=== PATIENT | male | born 1960 | race Caucasian/White ===

== ENCOUNTER 2023-05-28 21:16 | Emergency (ER) | payer OTHER, SELFPAY ==
[2023-05-28 21:35] VITALS: BP 166/89; PULSE 82; RESP 18; TEMP 37.1; O2SAT 97; BMI 36.6
--- NOTE | 2023-05-28 23:05 | ED.UPPEXIN1 ---
HPI - Extremity Injury (Upper) General Chief Complaint: Extremity Injury, Upper Stated Complaint: UPPER EXTREMITY INJURY Time Seen by Provider: 05/28/23 22:54 Source: patient Mode of arrival: walk-in Limitations: no limitations History of Present Illness HPI narrative: working on wood floor and got a splinter in his left pinky finger about 6 hours ago. 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 [facility] doctor was unsuccessful at removing it and directed him here. no other injury or complaint Related Data Home Medications Medication Instructions Recorded Confirmed amlodipine 5 mg tablet 5 mg PO DAILY 05/28/23 05/28/23 losartan 25 mg tablet (Cozaar) 25 mg PO DAILY 05/28/23 05/28/23 Allergies Allergy/AdvReac Type Severity Reaction Status Date / Time gentamicin Allergy Verified 05/28/23 21:44 hydromorphone [From Dilaudid] Allergy Verified 05/28/23 21:44 lisinopril Allergy Verified 05/28/23 21:44 Review of Systems ROS Status of ROS 10 or more systems reviewed and unremarkable except as noted in history and below [facility] Social History Smoking status: Never smoker Exam Constitutional Vital Signs, click to edit/add: Last Vital Signs Temp 98.7 F 05/28/23 21:35 Pulse 82 05/28/23 21:35 Resp 18 05/28/23 21:35 BP 166/89 H 05/28/23 21:35 Pulse Ox 97 05/28/23 21:35 O2 Del Method Room Air 05/28/23 21:35 Common normals: no apparent distress, average body habitus, oriented x3, healthy appearing, alert and well nourished [facility] Common normals: normocephalic and head/scalp atraumatic Eye Common normals: EOMs intact bilaterally and conjunctivae normal Respiratory Common normals: normal respiratory effort and no use of accessory muscles Extremity Other: small puncture volar left pinky near DIP joint. site is tender. not able to palpate any FB Neuro Common normals: oriented x3, CN's II-XII intact bilaterally, moves all extremities, no focal motor deficits and no sensory deficits noted Psych Appearance: grossly normal Course Vital Signs Vital signs: Vital Signs Temperature 98.7 F 05/28/23 21:35 Pulse Rate 82 05/28/23 21:35 Respiratory Rate 18 05/28/23 21:35 Blood Pressure 166/89 H 05/28/23 21:35 Pulse Oximetry 97 05/28/23 21:35 Oxygen Delivery Method Room Air 05/28/23 21:35 Temperature 98.7 F 05/28/23 21:35 Pulse Rate 82 05/28/23 21:35 Respiratory Rate 18 05/28/23 21:35 Blood Pressure 166/89 H 05/28/23 21:35 Pulse Oximetry 97 05/28/23 21:35 Oxygen Delivery Method Room Air 05/28/23 21:35 MDM - Extremity Injury (Upper) MDM Narrative Medical decision making narrative: presents with FB left pinky. able to remove as above. No complications. Patient given tetanus and augmentin and discharged home Discharge Plan Discharge Chief Complaint: Extremity Injury, Upper Clinical Impression: Foreign body in skin of finger of left hand Patient Disposition: Home, Self-Care Prescriptions / Home Meds: No Action losartan [Cozaar] 25 mg tablet 25 mg PO DAILY amlodipine 5 mg tablet 5 mg PO DAILY Instructions: Puncture Wound (ED) Additional Instructions: have stitch removed 10 days Stand Alone Forms: Portal Instructions Referrals: Physician,Non-Staff, MD [Primary Care Provider] - 1 week Procedures ED Procedure Instructions Procedures Procedures: splinter left volar pinky at DIP joint. 1% lido without epi as a local. 4mm incision made to locate wooden FB. Able to slowly release and express the FB enough to grab it with hemostats. Removed intact. wooden splinter 2cm in length. Tolerated procedure well #1 6.0 nylon stitch used to close wound
--- NOTE | 2023-05-28 23:31 | PC.NURSE ---
Patient was working on [employer]ss, got splinter in left fifth digit at distal joint moving toward tip of finger. He saw Dr. Abby Laughlin who tried to get the splinter out but was unable and she recommended that he come to the ED to have it cut out. He tried to cut it out himself at home using a razor blade before coming to the ED but was unable. He feels pain in the nail when pressure is applied.
[2023-05-28] MEDS: LIDOCAINE HCL 1% 100 MG/10 ML MDV INJ (23:35)
[2023-05-28] MEDS: AMOXICILLIN/POTASSIUM CLAV 1 TAB TABLET PO (23:58)
[2023-05-28] MEDS: ADACEL DIPH,PERTUSS(ACELL),TET VAC/PF 0.5 ML ADULT SYRINGE IM (23:58)
== END 2023-05-29 00:10 | disposition home or self-care (01) ==
PROVIDERS: Emergency Provider Internal Medicine
DX: S60.457A Superficial foreign body of left little finger, initial encounter (principal); W45.8XXA Other foreign body or object entering through skin, initial encounter; Z23 Encounter for immunization; Z79.899 Other long term (current) drug therapy
CPT/HCPCS: 10120; 90471; 90715; 99284